=== PATIENT | male | born 1990 | race African-American/Black ===

== ENCOUNTER 2022-06-28 18:33 | Emergency (ER) | payer SELFPAY ==
[~2022-06-28] VITALS: Ht 170.2 cm; Wt 73.0 kg
[2022-06-28] MEDS ORDERED: ACETAMINOPHEN 325MG TABLET PO ONE (21:30)
[2022-06-28] MEDS ORDERED: METOCLOPRAMIDE HCL 10MG TABLET PO ONE (21:30)
[2022-06-28] MEDS ORDERED: IBUP-2029 MT ×2 (22:59→23:29)
[2022-06-28] MEDS ORDERED: METO-293 MT ×2 (22:59→23:29)
[2022-06-28] MEDS ORDERED: IBUPROFEN 600MG TABLET PO ONE (23:00)
[2022-06-28 23:31] VITALS: BP 112/78
== END 2022-06-28 23:30 | disposition home or self-care (01) ==
LOC: ER 18:33
DX: S06.0X0A Concussion without loss of consciousness, initial encounter (principal); V43.52XA Car driver injured in collision with other type car in traffic accident, initial encounter; Y93.89 Activity, other specified; Y92.488 Other paved roadways as the place of occurrence of the external cause
CPT/HCPCS: 70450; 99284; J8597

== ENCOUNTER 2024-04-24 18:35 | Emergency (ER) | payer SELFPAY ==
[~2024-04-24] VITALS: Ht 172.7 cm; Wt 73.0 kg
[~2024-04-24 18:35] MED LIST: IBUP-2029 MT; METO-293 MT
[2024-04-24 18:38] VITALS: O2SAT 100
[2024-04-24 18:44] VITALS: TEMP 98.5
[2024-04-24 21:08] VITALS: BP 119/79; PULSE 97; RESP 16
[2024-04-24] MEDS: KETOROLAC 15MG/ML VIAL IM ONE (21:08)
[2024-04-24] MEDS ORDERED: NAPR-1176 MT (21:22)
[2024-04-24] MEDS ORDERED: LIDO700A15 TP (21:22)
== END 2024-04-24 22:00 | disposition home or self-care (01) ==
LOC: ER 18:35
DX: M54.2 Cervicalgia (principal); M54.9 Dorsalgia, unspecified; V98.8XXA Other specified transport accidents, initial encounter; Y93.89 Activity, other specified; Y92.89 Other specified places as the place of occurrence of the external cause; Y99.8 Other external cause status
CPT/HCPCS: 99283; 96372; J1885